=== PATIENT | male | born 1930 | race Caucasian/White ===

== ENCOUNTER 2017-10-29 09:21 | Emergency (ER) | payer OTHER ==
[~2017-10-29] VITALS: Ht 175.3 cm; Wt 99.8 kg
[~2017-10-29 09:21] MED LIST: AMIODARONE200 MG PO; APIX5T PO; ASMANEX TW0.22 MG/A1 INH; AVAPRO 150MG150 MG PO; COLCRYS0.6 MG PO; COUMADIN 5 MG TA5 MG PO; DOK100 M1 PO; HYDRODIURIL 2525 MG PO; LEVOTHYROXIN0.075 MG PO; PERCOCET 325 MG1 TA2 PO; PROAIR HFA0.09 MG/Ac INH; SIMVASTATIN40 MG PO; SPIRIVA 18 MCG18 MCG INH; VERAPAMIL HCL40 MG PO; ZYLOPRIM100 MG PO
[2017-10-29 11:11] LABS: ABSOLUTE BASOPHIL COUNT 0 /CUMM (0.0-0.2); ABSOLUTE EOSINOPHIL COUNT 0 /CUMM (0.0-0.7); ABSOLUTE GRANULOCYTE CT 15.1 /CUMM (1.4-6.5); ABSOLUTE LYMPH COUNT 0.2 /CUMM (1.2-3.4); ABSOLUTE MONOCYTE COUNT 0 /CUMM (0.10-0.60); BASOPHIL % 0 % (0.0-2.0); EOSINOPHIL % 0 % (0-5); GRANULOCYTE % 98.5 % (42.2-75.2); HEMATOCRIT 35.9 % (42-52); MEAN CORPUSCULAR HGB 32.9 PG (27.0-31.0); MEAN CORPUSCULAR HGB CONC 32.9 G/DL (33.0-37.0); MEAN CORPUSCULAR VOLUME 99.8 FL (80.0-94.0); PLATELET COUNT 248 /CUMM (130-400); RBC DISTRIBUTION WIDTH 15.3 % (11.5-14.5); WHITE BLOOD CELL COUNT 15.4 /CUMM (4.8-10.8)
--- NOTE | 2017-10-29 12:12 | ED DYSPNEA/ASTHMA COMPLAINT ---
History of Present Illness General Chief Complaint: General Adult Stated Complaint: SOB, LIGHTHEADED, BACK PAIN Source: patient Exam Limitations: no limitations Vital Signs & Intake/Output Vital Signs & Intake/Output Vital Signs Date Time Temp Pulse Resp B/P B/P Pulse O2 O2 Flow FiO2 Mean Ox Delivery Rate 10/29 1638 98.0 98 20 94/54 94 Room Air 10/29 1406 99.8 94 20 128/64 97 Nasal 2.0L Cannula 10/29 1207 99.6 98 24 122/59 95 Nasal 3.0L Cannula 10/29 1030 96 10/29 0946 99.9 94 20 109/58 96 Room Air Allergies Coded Allergies: Penicillins (FACIAL WEAKNESS 07/16/15) Reconcile Medications Albuterol Sulfate (Ventolin Hfa) 90 MCG HFA.AER.AD 2 PUF INH Q4H PRN RESP. ( Reported) Allopurinol 100 MG TABLET 1 TAB PO DAILY URIC ACID (Reported) Allopurinol 300 MG TABLET 1 TAB PO DAILY URIC ACID (Reported) Amiodarone HCl 200 MG TABLET 1 TAB PO DAILY HEART (Reported) Apixaban (Eliquis) 5 MG TABLET 1 TAB PO BID BLOOD THINNER (Reported) Atorvastatin Calcium 20 MG TABLET 1 TAB PO DAILY CHOLESTEROL (Reported) Hydrochlorothiazide 25 MG TABLET 1 TAB PO DAILY DIURETIC (Reported) Irbesartan 300 MG TABLET 1 TAB PO DAILY BP (Reported) Levothyroxine Sodium 88 MCG TABLET 1 TAB PO DAILY THYROID (Reported) Mirabegron (Myrbetriq) 25 MG TAB.ER.24H 1 TAB PO DAILY BLADDER (Reported) Mometasone Furoate (Asmanex) 220 MCG (120 DOSES) AER.POW.BA 2 PUFF INH QPM RESP. (Reported) Tamsulosin HCl 0.4 MG CAP.ER.24H 1 CAP PO QPM (Reported) Tiotropium [place] (Spiriva) 18 MCG CAP.W.DEV 1 CAP INH DAILY RESP. (Reported ) Triage Note: PT C/O SOB, UPPER BACK PAIN SINCE 2199 LAST NIGHT. PT DENIES CP. STATES HE HAD AN MRI OF HIS HEAD LAST WEEK TO R/O STROKE? STATES HE HASN'T GOTTEN THE RESULTS. NEUROS INTACT IN TRIAGE . Triage Nurses Notes Reviewed? yes HPI: 87-year-old male presented to the emergency department reporting 10 PM last night he started having shortness of breath, minimally productive cough with slightly white sputum, and also aching of his bilateral shoulders which felt like "piece of lead sitting on my shoulders ". He reports having lower back pain as well which is sharp. He does state history of lower back pain d/t degenerative changes however it hasn't been this bad. He reports history of atrial fibrillation on Eliquis, COPD for which he usually takes inhalers at home. He states that yesterday during the day he had bought a spray to remove flies from his home, he states he believes that this may have something to do with his current respiratory issues. (Lucia Richardson) Past History Travel History Traveled to [place] past 21 day No Medical History Any Pertinent Medical History? see below for history Neurological: NONE EENT: NONE Cardiovascular: AFIB, hypertension Respiratory: asthma Gastrointestinal: HERNIA REPAIR Hepatic: NONE Renal: NONE Musculoskeletal: LEFT KNEE REPLACEMENT Psychiatric: NONE Endocrine: NONE Blood Disorders: NONE Cancer(s): NONE DIRECTOR ENERGY/Reproductive: NONE History of MRSA: No History of VRE: No History of CDIFF: No Pneumonia Vaccine: 01/23/07 Influenza Vaccine: 01/23/15 Surgical History Surgical History: non-contributory Psychosocial History Who do you live with Patient/Self Services at Home None What is your primary language Korean Tobacco Use: Never used ETOH Use: occasional use Illicit Drug Use: denies illicit drug use Family History Hx Contributory? No (Lucia Richardson) Review of Systems Review of Systems Constitutional: Reports: see HPI. EENTM: Reports: no symptoms. Respiratory: Reports: see HPI. Cardiovascular: Reports: no symptoms. GI: Reports: no symptoms. Genitourinary: Reports: no symptoms. Musculoskeletal: Reports: see HPI. Skin: Reports: no symptoms. Neurological/Psychological: Reports: no symptoms. Hematologic/Endocrine: Reports: no symptoms. Immunologic/Allergic: Reports: no symptoms. All Other Systems: Reviewed and Negative (Lucia Richardson) Physical Exam Physical Exam General Appearance: well developed/nourished, alert, awake, moderate distress Head: atraumatic, normal appearance Eyes: Bilateral: normal appearance, PERRL, EOMI. Ears, Nose, Throat: normal pharynx, hearing grossly normal Neck: normal inspection, full range of motion Respiratory: chest non-tender, accessory muscle use, I had attempted to help patient forward in order to listen to lungs however pt began desatting to early 80s, so this was discontinued Cardiovascular: regular rate/rhythm, murmur (systolic), normal peripheral pulses Peripheral Pulses: 3+ radial (R), 3+ radial (L), 3+ dorsalis pedis (R), 3+ dorsalis pedis (L) Gastrointestinal: normal bowel sounds, soft, non-tender, distention (minimal) Extremities: normal inspection, normal capillary refill, normal range of motion, no edema Neurologic/Psych: no motor/sensory deficits, awake, alert, oriented x 3, normal mood/affect Skin: intact, normal color, diaphoresis Core Measures ACS in differential dx? No CVA/TIA Diagnosis No Sepsis Present: No Sepsis Focused Exam Completed? No (Rajinder NEVES,Lucia) Progress Differential Diagnosis: AMI, COPD, pneumonia, cholecystitis, pancreatitis Plan of Care: Orders Procedure Date/time Status Nothing by Mouth 10/29 D Active URINALYSIS 10/29 1037 Complete TROPONIN LEVEL 10/29 1037 Complete MAGNESIUM 10/29 1037 Complete LIPASE 10/29 1037 Complete COMPREHENSIVE METABOLIC PANEL 10/29 1037 Complete CBC WITHOUT DIFFERENTIAL 10/29 1037 Complete B-TYPE NATRIURETIC PEP (BNP) 10/29 1037 Complete EKG 10/29 0925 Active Laboratory Tests 10/29/17 1325: Urinalysis LIGHT H, Urine Color YEL, Urine Clarity CLEAR, Urine pH 6.5, Ur Specific [place] 1.020, Urine Protein 30 H, Urine Ketones NEG, Urine Nitrite NEG, Urine Bilirubin NEG, Urine Urobilinogen 0.2, Ur Leukocyte Esterase NEG, Ur Microscopic SEDIMENT EXAMINED, Urine RBC 1-3, Urine WBC 3-5 H, Ur Epithelial Cells RARE, Urine Bacteria RARE H, Granular Casts FEW H, Urine Mucus FEW, Urine Hemoglobin NEG, Urine Glucose NEG 10/29/17 1039: Anion Gap 16, Estimated GFR 28 L, BUN/Creatinine Ratio 15.5, Glucose 189 H, Calcium 9.6, Magnesium 1.9, Total Bilirubin 3.0 H, AST 628 H, ALT 518 H, Alkaline Phosphatase 392 H, Troponin I 0.02, Xgo-Z-Jhcgpobcsri Pept 1930 H, Total Protein 6.6, Albumin 3.7, Globulin 2.9, Albumin/Globulin Ratio 1.3, Lipase > 67411 H, CBC w Diff MAN DIFF ORDERED, RBC 3.60 L, MCV 99.8 H, MCH 32.9 H, MCHC 32.9 L, RDW 15.3 H, MPV 8.0, Gran % 98.5 H, Lymphocytes % 1.2 L, Monocytes % 0.3 L, Eosinophils % 0, Basophils % 0, Absolute Granulocytes 15.1 H, Segmented Neutrophils 93 H, Band Neutrophils 6 H, Absolute Lymphocytes 0.2 L, Monocytes 1 L, Absolute Monocytes 0 L, Absolute Eosinophils 0, Absolute Basophils 0, Platelet Estimate ADEQUATE, Normocytic RBCs VERIFIED, Normochromic RBCs VERIFIED -While attempting to listen to patient's lungs, he began to desat into early 80s. He was sat back upright with help from nursing staff and was satting back to 95. -Solumedrol ordered -Duoneb ordered but respiratory unavailable, patient with labored breathing although satting 95, will give 2L NC. -Labs - WBC elevated, creat 2.2 (HITESH), lipase 10,000 (pancreatitis), BNP 1930, ALT 518, AST 628, trop 0.02 -Patient will be admitted for acute pancreatitis, made NPO. Patient vomiting at bedside - given zofran/acetaminophen/NS. -Spoke with Dr. Sargent - bili and alk phos elevated, likely gallstone pancreatitis vs ascending cholangitis and patient would need ERCP. Will contact Dr. Hall for consult. -Dr. Hall reports Dr. El is not available for ERCP so will need to transfer patient to [place] if patient has gall stones present. -CT scan indicates 2 gall strones in the distal common duct, with dilated CBD. Will ready patient for transfer. -Called [facility] to discuss transfer and spoke with Dr. De Souza (GI) and Dr. Herrera (hospitalist) from [facility], both aware and accepting trasnfer. -Starting pt on ceftriaxone/flagyl to cover for potential ascending cholangitis. (allergies to pcn "facial weakness") -Family and patient aware of situation. Patient stable at time of discharge. Diagnostic Imaging: Viewed by Me: CT Scan. Discussed w/RAD: CT Scan. Radiology Impression: PATIENT: YULIA CAMPBELL PRESENT AGE: 87 PATIENT ACCOUNT NO: [id number] : 30 LOCATION: [facility] ORDERING PHYSICIAN: Lucia NEVES SERVICE DATE: 07/07/18-1305 EXAM TYPE: CAT - CT ABD & PELVIS W/O IV CONTRAS EXAMINATION: CT ABDOMEN AND PELVIS WITHOUT CONTRAST CLINICAL INFORMATION: Nodular, vomiting and back pain. COMPARISON: Abdomen ultrasound, 10/21/2017. TECHNIQUE: Multidetector volumetric imaging was performed from the superior aspect of the liver through the pubic symphysis. Sagittal and coronal reformatted images were obtained on the technologist's workstation. DLP: 1396 mGy-cm FINDINGS: CERTIFIED PERFORMANCE TECHNOLOGIST: Obese body habitus. LUNG BASES: Images through the lung bases are partially degraded by respiratory motion. Mild atelectasis in lower lobes, medial segment of middle lobe and inferior lingula. Mitral valve annular calcification is noted. Also, calcification is seen at the level of the aortic valve. Mild atherosclerosis of the thoracic aorta. No pericardial or pleural effusion. LIVER, GALLBLADDER, AND BILIARY TREE: Liver has normal size, contour and parenchymal attenuation. The intrahepatic bile ducts are mildly dilated. There appear to be two calcified stones within the gallbladder. Gallbladder is suboptimally evaluated due to motion degradation of images. No gallbladder wall edema or pericholecystic fluid. Common bile duct is diffusely dilated and measures up to approximately 1.5 cm transverse diameter. Two calculi, each measuring up to 0.8 cm, are seen within the distal common duct. PANCREAS: Mild atrophy of the pancreas. No pancreatic ductal dilatation or peripancreatic edema. SPLEEN: Unremarkable. ADRENAL GLANDS: Unremarkable. KIDNEYS AND URETERS: Mild bilateral renal cortical atrophy. No nephrolithiasis or hydronephrosis. BLADDER: The urinary bladder is herniated into the right inguinal canal. GASTROINTESTINAL TRACT: Bowel loops are normal in caliber. Diverticulosis of descending and sigmoid colon without diverticulitis. No ascites or pneumoperitoneum. ABDOMINAL WALL: The right inguinal hernia contains fat and urinary bladder. LYMPH NODES: A lymph node in the portacaval region is 1 cm AP diameter. This is of doubtful significance. There are no enlarged retroperitoneal, mesenteric or iliac lymph nodes. No inguinal lymphadenopathy. VASCULAR: Mild atherosclerosis of the abdominal aorta and iliac arteries without aneurysm. PELVIC VISCERA: Prostate gland measures 3.1 cm transverse and 2.3 cm AP. No pelvic mass or free fluid. OSSEOUS STRUCTURES: Degenerative disc disease of L3-L4, L4-L5 and L5-S1. 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 No suspicious bone lesions. IMPRESSION: 1. Cholelithiasis and choledocholithiasis. Common bile duct is abnormally dilated up to 1.5 cm transverse diameter. The intrahepatic bile ducts are mildly dilated, as well. Recommend correlation with bilirubin levels. 2. Diverticulosis of the descending and sigmoid colon. 3. Right inguinal hernia contains urinary bladder. DICTATED BY: Song Sierra MD DATE/TIME DICTATED:10/29/171510 GORE SEAMER:LEE DATE/TIME TRANSCRIBED:10/29/171510 CONFIDENTIAL, DO NOT COPY WITHOUT APPROPRIATE AUTHORIZATION. <Electronically signed in Other Vendor System> SIGNED BY: Song Sierra MD 10/29/17 2785 Initial ED EKG: normal sinus rhythm, RBBB, LVH (Lucia Richardson) Departure Departure Disposition: [facility] (ACUTE) Condition: Stable Clinical Impression Primary Impression: Acute gallstone pancreatitis Secondary Impressions: Choledocholithiasis Cholelithiasis Qualifiers: Cholelithiasis location: bile duct Cholecystitis presence: without cholecystitis Biliary obstruction: with biliary obstruction Qualified Code: K80.51 - Calculus of bile duct without cholangitis or cholecystitis with obstruction Referrals: Jarad Lockwood MD (PCP/Family) Additional Instructions: Patient being transferred to [facility] for ERCP. Departure Forms: Customer Survey General Discharge Information (Lucia Richardson) PA/CONTACT FINGER ASSEMBLER Co-Sign Statement Statement: ED Attending supervision documentation- x I saw and evaluated the patient. I have also reviewed all the pertinent lab results and diagnostic results. I agree with the findings and the plan of care as documented in the PA's/CONTACT FINGER ASSEMBLER's documentation. Abdominal pain secondary to gallstone pancreatitis, ERCP unavailable this weekend [] I have reviewed the ED Record and agree with the PA's/CONTACT FINGER ASSEMBLER's documentation. [] Additions or exceptions (if any) to the PAs/CONTACT FINGER ASSEMBLER's note and plan are summarized below: [] (Dev FENG,Khai) Critical Care Note Critical Care Note Critical Care Time: non-applicable (Lucia Richardson)
--- NOTE | 2017-10-29 13:01 | RADIOLOGY REPORT ---
EXAMINATION: XR PORTABLE CHEST CLINICAL INFORMATION: Shortness of breath. Cough. COMPARISON: 01/03/2017 TECHNIQUE: Portable frontal view of the chest was obtained. FINDINGS: Lungs are well expanded. No acute pulmonary abnormalities are seen on this single view of the chest. Again noted is mild prominence of the paracardiac fat pads. Cardiac silhouette is normal in size and hilar contours are normal. No pleural effusion. 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 IMPRESSION: No acute pulmonary disease.
[2017-10-29] MEDS ORDERED: TAMSULOSIN HCL0.4 M1 PO (13:07)
[2017-10-29] MEDS ORDERED: MYRBETRIQ25 M1 PO (13:08)
[2017-10-29] MEDS ORDERED: LEVOTHYROXINE88 MCG PO (13:08)
[2017-10-29] MEDS ORDERED: ELIQUIS5 M1 PO (13:08)
[2017-10-29] MEDS ORDERED: HYDROCHLOROTHIA25 M1 PO (13:08)
[2017-10-29] MEDS ORDERED: ALLOPURINOL300 M1 PO (13:09)
[2017-10-29] MEDS ORDERED: AMIODARONE HCL200 M2 PO (13:09)
[2017-10-29] MEDS ORDERED: ALLOPURINOL100 M1 PO (13:09)
[2017-10-29] MEDS ORDERED: ATORVASTATIN CA20 M1 PO (13:10)
[2017-10-29] MEDS ORDERED: IRBESARTAN300 M1 PO (13:10)
[2017-10-29] MEDS ORDERED: VENTOLIN HFA18 GM INH (13:10)
[2017-10-29] MEDS ORDERED: SPIRIVA18 MCG INH (14:20)
[2017-10-29] MEDS ORDERED: ASMANEX220 MCG INH (14:20)
--- NOTE | 2017-10-29 15:27 | CT SCAN REPORT ---
EXAMINATION: CT ABDOMEN AND PELVIS WITHOUT CONTRAST CLINICAL INFORMATION: Nodular, vomiting and back pain. COMPARISON: Abdomen ultrasound, 10/21/2017. TECHNIQUE: Multidetector volumetric imaging was performed from the superior aspect of the liver through the pubic symphysis. Sagittal and coronal reformatted images were obtained on the technologist's workstation. DLP: 1396 mGy-cm FINDINGS: TRANSPLANT IMMUNOLOGIST: Obese body habitus. LUNG BASES: Images through the lung bases are partially degraded by respiratory motion. Mild atelectasis in lower lobes, medial segment of middle lobe and inferior lingula. Mitral valve annular calcification is noted. Also, calcification is seen at the level of the aortic valve. Mild atherosclerosis of the thoracic aorta. No pericardial or pleural effusion. LIVER, GALLBLADDER, AND BILIARY TREE: Liver has normal size, contour and parenchymal attenuation. The intrahepatic bile ducts are mildly dilated. There appear to be two calcified stones within the gallbladder. Gallbladder is suboptimally evaluated due to motion degradation of images. No gallbladder wall edema or pericholecystic fluid. Common bile duct is diffusely dilated and measures up to approximately 1.5 cm transverse diameter. Two calculi, each measuring up to 0.8 cm, are seen within the distal common duct. PANCREAS: Mild atrophy of the pancreas. No pancreatic ductal dilatation or peripancreatic edema. SPLEEN: Unremarkable. ADRENAL GLANDS: Unremarkable. KIDNEYS AND URETERS: Mild bilateral renal cortical atrophy. No nephrolithiasis or hydronephrosis. BLADDER: The urinary bladder is herniated into the right inguinal canal. GASTROINTESTINAL TRACT: Bowel loops are normal in caliber. Diverticulosis of descending and sigmoid colon without diverticulitis. No ascites or pneumoperitoneum. ABDOMINAL WALL: The right inguinal hernia contains fat and urinary bladder. LYMPH NODES: A lymph node in the portacaval region is 1 cm AP diameter. This is of doubtful significance. There are no enlarged retroperitoneal, mesenteric or iliac lymph nodes. No inguinal lymphadenopathy. VASCULAR: Mild atherosclerosis of the abdominal aorta and iliac arteries without aneurysm. PELVIC VISCERA: Prostate gland measures 3.1 cm transverse and 2.3 cm AP. No pelvic mass or free fluid. OSSEOUS STRUCTURES: Degenerative disc disease of L3-L4, L4-L5 and L5-S1. 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 No suspicious bone lesions. IMPRESSION: 1. Cholelithiasis and choledocholithiasis. Common bile duct is abnormally dilated up to 1.5 cm transverse diameter. The intrahepatic bile ducts are mildly dilated, as well. Recommend correlation with bilirubin levels. 2. Diverticulosis of the descending and sigmoid colon. 3. Right inguinal hernia contains urinary bladder.
[2017-10-29 16:38] VITALS: BP 94/54
== END 2017-10-29 17:01 | disposition short-term general hospital (02) ==
LOC: ERH 09:21
PROVIDERS: Emergency Medicine
DX: K85.10 Biliary acute pancreatitis without necrosis or infection (principal); K80.50 Calculus of bile duct without cholangitis or cholecystitis without obstruction; R42 Dizziness and giddiness; R05 Cough; M54.5 Low back pain; M25.511 Pain in right shoulder; M25.512 Pain in left shoulder
CPT/HCPCS: 71045; 74176; 81001; 93005; 93010; 96374; 96375; J0131; J0696; J2405; J2930